=== PATIENT | female | born 1955 | race Caucasian/White ===

== ENCOUNTER 2021-01-01 15:54 | Inpatient (IN) | payer MEDICARE, SELFPAY ==
--- NOTE | ~2021-01-01 | CT_ITS ---
EXAMINATION: CT HEAD WITHOUT CONTRAST CLINICAL INFORMATION: Sanchez's palsy versus stroke. Pain left mastoid region COMPARISON: None TECHNIQUE: Contiguous axial imaging was performed from the skull base to vertex without intravenous administration of contrast. This CT examination was performed using dose optimization techniques as appropriate, variously including the following: *Automated exposure control *Adjustment of mA and/or kV according to patient size (this includes techniques or standardized protocols for targeted exams where dose is matched to indication/reason for exam; i.e. extremities or head) *Use of iterative reconstruction technique DLP: 593 mGy-cm FINDINGS: There is no evidence of acute intracranial hemorrhage or territorial infarction. No abnormal mass effect or midline shift is seen. [place] to white matter differentiation is well preserved. No extra-axial fluid collections are identified. The ventricles are normal in size. There is no abnormal attenuation within the brain parenchyma. The osseous structures and soft tissues are normal. There is diffuse mucoperiosteal thickening with air-fluid level left sphenoid sinus. Rest of the paranasal sinuses are well expanded and clear. Bilateral mastoid sinuses are hypoplastic but clear. Incidental finding of soft tissue mass within left middle ear suggestive of cholesteatoma. CT/CT head/brain wo con IMPRESSION: No acute intracranial process seen. Likely acute sphenoid sinusitis. Left middle ear cholesteatoma. Recommend ENT follow-up.
--- NOTE | ~2021-01-01 | MR_ITS ---
EXAMINATION: MR BRAIN WITHOUT CONTRAST CLINICAL INFORMATION: Stroke evaluation. COMPARISON: CT from 01/01/2021. TECHNIQUE: Multiplanar, multisequence imaging of the brain was performed without contrast. Limits study with motion artifacts. FINDINGS: No diffusion abnormalities are identified to suggest an acute or subacute infarct. The ventricles are normal in size. No mass effect or midline shift is seen. Mild patchy areas of T2 hyperintense signal change in the cerebral white matter and cathy may be due to ischemic microangiopathy. No extra-axial fluid collections are seen. The cerebellum is normal. The gradient refocused acquisition demonstrates no pathologic magnetic susceptibility artifact to indicate underlying acute or chronic blood products. The craniovertebral junction, marrow signal, and midline structures are normal. The major intracranial flow voids at the level of the [place] are preserved. The dural venous sinus flow voids are maintained. There is a moderate amount of fluid in the left middle ear cavity and left mastoid air cells. The right middle ear cavity and right mastoid air cells are well aerated. There may be a mild amount of nonspecific fluid signal in the central canal of the cord on the sagittal T1 FLAIR acquisition. No large syrinx is otherwise evident on the recent prior CT study. There is abnormal asymmetric thickening of the torus tubarius along the posterolateral nasopharyngeal wall on the left side as compared to the right side with partial effacement of the fossa of [place]. No marrow signal abnormality evident in the skull base. Early at the site. There is moderate mucosal thickening along the lai of the left sphenoid sinus. MR/MR head/brain wo con IMPRESSION: Limited study with motion artifacts. No acute intracranial process. Specifically, no acute infarct on diffusion imaging. Mild chronic white matter microangiopathy. Moderate amount of fluid signal in the left middle ear cavity and left mastoid air cells with abnormal asymmetric soft tissue thickening of the left torus tubarius along the posterolateral nasopharyngeal wall and roof resulting in partial effacement of the left fossa of [place]. 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 Recommend ENT consultation to guide further management with direct visual inspection. Imaging findings reported to ZANDER Hernández at 11:09 AM on 01/02/2021.
--- NOTE | ~2021-01-01 | CT_ITS ---
EXAMINATION: CT angio head neck CLINICAL INFORMATION: Left mouth droop. Dysphagia. Bilateral lower extremity weakness. COMPARISON: CT scan of the head 01/01/2021. TECHNIQUE: Building Cleaning Supervisor images were obtained. A CT angiogram of the head and neck was performed in the arterial phase after the intravenous administration of 70 mL Omnipaque 350. Delayed postcontrast images of the head were also obtained. MIP reconstructions were generated in multiple orientations at the acquisition workstation. Multiple three-dimensional surface rendered images and maximum intensity projection images were generated on a dedicated 3-D lab workstation. Arterial stenoses are measured in accordance with NASCET criteria or similar method if applicable. This CT examination was performed using dose optimization techniques as appropriate, including one or more of the following: Automated exposure control, iterative reconstruction, and adjustment of technique factors (mA and/or kVp) according to patient size (this includes techniques or standardized protocols for targeted exams where dose is matched to indication/reason for exam). Total exam dose-length product 1348 mGy-cm FINDINGS: Head: Postcontrast images reveal no abnormal mass or enhancement within the intracranial compartment. No intracranial mass effect or midline shift. Lateral and third ventricles are normal. No hydrocephalus. Ortega-white matter differentiation is preserved and there is no evidence of acute territorial infarct. The calvarium and skull base are intact. The left mastoid air cells and middle ear cavity are partially opacified. The right mastoid air cells are hypoplastic. There is circumferential mucosal thickening within the left sphenoid sinus chamber with a small amount of associated layering fluid. CT angiogram neck: The aortic arch apex is normal. Origins of the major aortic branches are widely patent. Common carotid arteries and the carotid bifurcations are patent. No stenosis of the extracranial internal carotid arteries. There is however beaded irregular narrowing involving both internal carotid arteries consistent with fibromuscular dysplasia. This finding is best depicted on coronal MIP image 93 of 176 series 9. The cervical segments of the vertebral arteries as well as their origins are patent. CT angiogram head: Intracranial internal carotid arteries are patent. The intradural vertebral artery segments and basilar artery are patent. Anterior, middle, and posterior cerebral artery complexes are normal. No intracranial large vessel occlusion. Other: Soft tissues of the neck are unremarkable. Visualized lung apices are clear. No acute osseous finding. Multilevel degenerative spondylosis of the cervical spine. Grossly no evidence of canal compromise. CT/CT angio head neck IMPRESSION: Fibromuscular dysplasia is visualized within both extracranial internal carotid arteries. Otherwise no stenosis of the cervical carotid or vertebral arteries. No intracranial large vessel occlusion. No evidence of acute territorial infarct or hemorrhage. No abnormal intracranial mass or enhancement.
[2021-01-01 15:56] VITALS: BP 166/98; PULSE 106; RESP 20; TEMP 36.8; O2SAT 97; BMI 25.9
--- NOTE | 2021-01-01 16:04 | ECG_ITS ---
Test Reason : FACIAL DROOPING Blood Pressure : / mmHG Vent. Rate : 106 BPM Atrial Rate : 106 BPM P-R Int : 120 ms QRS Dur : 086 ms QT Int : 338 ms P-R-T Axes : 060 061 028 degrees QTc Int : 448 ms Sinus tachycardia Otherwise normal ECG No previous ECGs available Referred By: Generic ED Physician Electronically Signed By:FLOWER PHILLIPS
[2021-01-01 16:28] VITALS: BP 130/71; PULSE 105; RESP 18; O2SAT 97
--- NOTE | 2021-01-01 16:39 | ECG_ITS ---
Test Reason : STROKE Blood Pressure : / mmHG Vent. Rate : 092 BPM Atrial Rate : 092 BPM P-R Int : 122 ms QRS Dur : 096 ms QT Int : 356 ms P-R-T Axes : 067 066 027 degrees QTc Int : 440 ms Normal sinus rhythm Normal ECG When compared with ECG of 01-JAN-2021 16:12, No significant change was found Referred By: Lachelle Braga Electronically Signed By:FLOWER PHILLIPS
--- NOTE | 2021-01-01 16:48 | ED.NEUROSD ---
HPI - Neuro Symptoms/Deficit General Chief Complaint: Stroke Stated Complaint: stroke? Time Seen by Provider: 01/01/21 16:22 Source: patient Mode of arrival: ambulatory Limitations: no limitations History of Present Illness HPI Narrative: Patient comes to emergency room, brought in by her family. Patient returned from vacation and noticed that the patient has left-sided mouth droop and has trouble swallowing. Patient states about 2 days she noticed that her left-sided of her face is droopy. Patient denies weakness in her upper extremities. The family did notice that she also has lower bilateral extremity weakness. Usually patient is able to ambulate at baseline, but today patient had trouble getting out of her chair and walking. Patient states that any fluids that she puts in her mouth, she cannot swallow. Patient denies pain, no falls, not on any blood thinners Related Data Home Medications Medication Instructions Recorded Confirmed ibuprofen-diphenhydramine cit 2 cap PO BEDTIME 01/01/21 01/01/21 [Advil PM] melatonin 10 mg PO BEDTIME PRN 01/01/21 01/01/21 Allergies Allergy/AdvReac Type Severity Reaction Status Date / Time No Known Allergies Allergy Verified 01/01/21 16:01 Review of Systems Review of Systems: Constitutional : No Weight loss, No Fever, No Chills, No Night Sweats, No Fatigue, No Malaise ENT/Mouth : No Hearing loss, complaining of left-sided ear pain, swelling, drainage for 2 weeks. No Nasal Congestion, No Sinus Pain, No Hoarseness, No sore throat, No Rhinorrhea, No Swallowing Difficulty Eyes: No Eye Pain, No Swelling, No Redness, No Foreign Body, No Discharge, No Vision Changes Cardiovascular : No Chest Pain, No SOB, No Dyspnea on Exertion, No Orthopnea, No Edema, No Palpitations Respiratory : No Cough, No Sputum, No Wheezing, No Smoke Exposure, No Dyspnea Gastrointestinal : No Nausea, No Vomiting, No Diarrhea, No Constipation, No abdominal Pain, No Hematochezia, No Melena Genitourinary : no irregular bleeding, No Dysuria, No Urinary Frequency, No Hematuria, No Urinary Incontinence, No Urgency, No Flank Pain, No Urinary Flow Changes, No Hesitancy Musculoskeletal : No joint pain, No Myalgias, No Joint Swelling Skin : No Skin Lesions, No rash Neuro : No Weakness, No Numbness, No Paresthesias, No Loss of Consciousness, No Dizziness, No Headache Psych : No Anxiety/Panic, No Depression, No SI/HI/AH/VH, No Social Issues, Heme/Lymph: No Bruising, No Bleeding,No Lymphadenopathy Endocrine : No Polyuria, No Polydipsia, No Temperature Intolerance PMFSH Past Medical History Medical History Arm abscess Insomnia Surgical History H/O section Social History Social History Alcohol intake: never Patient Tobacco Use Status: Current someday Tobacco user Use of substances other than those prescribed or required for medical reasons: No Advance Directives: No Advance Directives Information Provided: No Physical Exam Vital Signs: Vital Signs: Last Vital Signs Temp 99 F 01/01/21 18:00 Pulse 105 H 01/01/21 16:28 Resp 18 01/01/21 19:37 BP 153/74 H 01/01/21 18:00 Pulse Ox 99 01/01/21 18:00 Body Mass Index 25.9 Appearance: Alert. Oriented X3. No acute distress. Eyes: Pupils equal, round and reactive to light. Left-sided eye droop ENT: Pharynx normal. Left-sided mouth droop, patient unable to wrinkle the left side of the forehead. Edematous and erythematous external ear canal with drainage Neck: Normal inspection. Neck supple. No lymph nodes noted. No crepitus CVS: Normal heart rate and rhythm. Pulses normal. Normal S1 and S2 Respiratory: No respiratory distress. Breath sounds normal. No Wheezing. No rales Abdomen: Soft and nontender. No rigidity. No distention. good BS x4 Skin: Skin warm and dry. Normal skin color. Normal skin turgor. Extremities: No lower extremity edema. Neuro: Oriented X 3. No motor deficit. Left-sided eye drooping and mouth drooping, 5/5 strength in all extremities bilaterally Course Course Course Narrative: On physical exam, patient seems to have difficulty raising the left eyebrow. 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 However, patient home significant trouble swallowing and new lower extremity generalized weakness. CT and CTA pending The CT and the CTA to no show any acute pathology or a large vessel occlusion. Patient is unable to from or move the eyebrow on the left side of her face which is most consistent with Sanchez's palsy, the ear infection that she has on the left ear may be a cause. However, patient has difficulty swallowing and failed the swallow eval. The family also reports new onset bilateral leg weakness, although on physical exam patient has 5/5 strength in upper and lower extremities. I discussed the physical exam and CT scans with Dr. Moe. At this time, patient will be treated as a possible stroke, antiviral medication will not be started at this time. Patient needs an MRI in the morning. I discussed the patient with Dr. Robledo, pt being admitted. MDM - Neuro Symptoms/Deficit Lab Data Result diagrams: 01/01/21 17:47 01/01/21 17:47 Labs: Lab Results 01/01/21 01/01/21 01/01/21 Range/Units 17:22 17:22 17:47 WBC 7.1 (4.8-10.8) X10*3/uL RBC 4.51 (4.20-5.50) X10*6/uL Hgb 13.4 (12.0-16.0) g/dl Hct 41.7 (37-47) % MCV 92.5 (80-98) fL MCH 29.7 (27.0-33.0) pg MCHC 32.1 (31.0-35.0) g/dl RDW 13.9 (11.0-16.0) % Plt Count 233 (160-400) X10*3/uL MPV 9.8 (9.4-12.3) fL Immature Gran % (Auto) 0.3 (0.0-0.4) % Neut % (Auto) 69.2 (45-73) % Lymph % (Auto) 18.5 L (20-40) % [place] % (Auto) 8.6 (2-11) % Eos % (Auto) 2.4 (0-4) % Baso % (Auto) 1.0 (0-2) % Lymph # (Auto) 1.3 (1.2-4.9) X10*3/uL [place] # (Auto) 0.6 (0.1-1.2) X10*3/uL Eos # (Auto) 0.2 (0.0-0.4) X10*3/uL Baso # (Auto) 0.1 (0.0-0.2) X10*3/uL Abs Immat Gran (auto) 0.02 (0.00-0.03) X10*3/uL Absolute Neuts (auto) 4.9 (2.0-8.3) X10*3/uL Absolute Nucleated RBC 0.000 (0.0-0.012) X10*3/uL Nucleated RBC % (auto) 0.0 (0.0-0.2) /100WBC PT (10.8-13.0) SEC INR (0.9-1.1) Sodium (135-145) mmol/L Potassium (3.3-5.1) mmol/L Chloride (96-108) mmol/L Carbon Dioxide (22-29) mmol/L Anion Gap (12-20) BUN (9-16) mg/dL Creatinine (0.5-1.4) mg/dL Estim Creat Clear Calc Estimated GFR Random Glucose (60-115) mg/dL Lactic Acid (0.5-2.0) mmol/L Calcium (8.4-10.2) mg/dL Total Bilirubin (0.0-1.0) mg/dL Direct Bilirubin (0.0-0.5) mg/dL AST (5-31) U/L ALT (0-31) U/L Alkaline Phosphatase (39-117) U/L Troponin I High Sens (<3.5-17.0) ng/L Total Protein (6.5-8.0) g/dL Albumin (3.5-5.0) g/dL Urine Color YELLOW Urine Appearance CLEAR Urine pH 6.0 (5.0-8.0) Ur Specific [place] >= 1.030 H (1.005-1.025) Urine Protein NEG (NEG-TRACE) MG/DL Urine Glucose (UA) NEG (NEG) MG/DL Urine Ketones 15 (NEG) MG/DL Urine Blood NEG (NEG) Urine Nitrite NEG (NEG) Ur Leukocyte Esterase NEG (NEG) Urine Opiates Screen Not Detected (Not Detect) Ur Barbiturates Screen Not Detected (Not Detect) Ur Phencyclidine Scrn Not Detected (Not Detect) Ur Amphetamines Screen Not Detected (Not Detect) U Benzodiazepines Scrn Not Detected (Not Detect) Urine Cocaine Screen Not Detected (Not Detect) U Marijuana (THC) Screen Not Detected (Not Detect) COVID-19 (MENDOZA) (Negative) COVID-19 Clin Com 01/01/21 01/01/21 01/01/21 Range/Units 17:47 17:47 17:47 WBC (4.8-10.8) X10*3/uL RBC (4.20-5.50) X10*6/uL Hgb (12.0-16.0) g/dl Hct (37-47) % MCV (80-98) fL MCH (27.0-33.0) pg MCHC (31.0-35.0) g/dl RDW (11.0-16.0) % Plt Count (160-400) X10*3/uL MPV (9.4-12.3) fL Immature Gran % (Auto) (0.0-0.4) % Neut % (Auto) (45-73) % Lymph % (Auto) (20-40) % [place] % (Auto) (2-11) % Eos % (Auto) (0-4) % Baso % (Auto) (0-2) % Lymph # (Auto) (1.2-4.9) X10*3/uL [place] # (Auto) (0.1-1.2) X10*3/uL Eos # (Auto) (0.0-0.4) X10*3/uL Baso # (Auto) (0.0-0.2) X10*3/uL Abs Immat Gran (auto) (0.00-0.03) X10*3/uL Absolute Neuts (auto) (2.0-8.3) X10*3/uL Absolute Nucleated RBC (0.0-0.012) X10*3/uL Nucleated RBC % (auto) (0.0-0.2) /100WBC PT 13.1 H (10.8-13.0) SEC INR 1.1 (0.9-1.1) Sodium 141 (135-145) mmol/L Potassium 4.1 (3.3-5.1) mmol/L Chloride 107 (96-108) mmol/L Carbon Dioxide 23 (22-29) mmol/L Anion Gap 15 (12-20) BUN 15 (9-16) mg/dL Creatinine 0.66 (0.5-1.4) mg/dL Estim Creat Clear Calc 58.7 Estimated GFR > 60 Random Glucose 102 (60-115) mg/dL Lactic Acid (0.5-2.0) mmol/L Calcium 9.4 (8.4-10.2) mg/dL Total Bilirubin 0.2 (0.0-1.0) mg/dL Direct Bilirubin < 0.2 (0.0-0.5) mg/dL AST 29 (5-31) U/L ALT 17 (0-31) U/L Alkaline Phosphatase 70 (39-117) U/L Troponin I High Sens < 3.5 (<3.5-17.0) ng/L Total Protein 6.1 L (6.5-8.0) g/dL Albumin 3.9 (3.5-5.0) g/dL Urine Color Urine Appearance Urine pH (5.0-8.0) Ur Specific [place] (1.005-1.025) Urine Protein (NEG-TRACE) MG/DL Urine Glucose (UA) (NEG) MG/DL Urine Ketones (NEG) MG/DL Urine Blood (NEG) Urine Nitrite (NEG) Ur Leukocyte Esterase (NEG) Urine Opiates Screen (Not Detect) Ur Barbiturates Screen (Not Detect) Ur Phencyclidine Scrn (Not Detect) Ur Amphetamines Screen (Not Detect) U Benzodiazepines Scrn (Not Detect) Urine Cocaine Screen (Not Detect) U Marijuana (THC) Screen (Not Detect) COVID-19 (MENDOZA) (Negative) COVID-19 Clin Com 01/01/21 01/01/21 01/01/21 Range/Units 17:47 19:49 19:49 WBC (4.8-10.8) X10*3/uL RBC (4.20-5.50) X10*6/uL Hgb (12.0-16.0) g/dl Hct (37-47) % MCV (80-98) fL MCH (27.0-33.0) pg MCHC (31.0-35.0) g/dl RDW (11.0-16.0) % Plt Count (160-400) X10*3/uL MPV (9.4-12.3) fL Immature Gran % (Auto) (0.0-0.4) % Neut % (Auto) (45-73) % Lymph % (Auto) (20-40) % [place] % (Auto) (2-11) % Eos % (Auto) (0-4) % Baso % (Auto) (0-2) % Lymph # (Auto) (1.2-4.9) X10*3/uL [place] # (Auto) (0.1-1.2) X10*3/uL Eos # (Auto) (0.0-0.4) X10*3/uL Baso # (Auto) (0.0-0.2) X10*3/uL Abs Immat Gran (auto) (0.00-0.03) X10*3/uL Absolute Neuts (auto) (2.0-8.3) X10*3/uL Absolute Nucleated RBC (0.0-0.012) X10*3/uL Nucleated RBC % (auto) (0.0-0.2) /100WBC PT (10.8-13.0) SEC INR (0.9-1.1) Sodium (135-145) mmol/L Potassium (3.3-5.1) mmol/L Chloride (96-108) mmol/L Carbon Dioxide (22-29) mmol/L Anion Gap (12-20) BUN (9-16) mg/dL Creatinine (0.5-1.4) mg/dL Estim Creat Clear Calc Estimated GFR Random Glucose (60-115) mg/dL Lactic Acid 0.6 (0.5-2.0) mmol/L Calcium (8.4-10.2) mg/dL Total Bilirubin (0.0-1.0) mg/dL Direct Bilirubin (0.0-0.5) mg/dL AST (5-31) U/L ALT (0-31) U/L Alkaline Phosphatase (39-117) U/L Troponin I High Sens (<3.5-17.0) ng/L Total Protein (6.5-8.0) g/dL Albumin (3.5-5.0) g/dL Urine Color Urine Appearance Urine pH (5.0-8.0) Ur Specific [place] (1.005-1.025) Urine Protein (NEG-TRACE) MG/DL Urine Glucose (UA) (NEG) MG/DL Urine Ketones (NEG) MG/DL Urine Blood (NEG) Urine Nitrite (NEG) Ur Leukocyte Esterase (NEG) Urine Opiates Screen Not Detected (Not Detect) Ur Barbiturates Screen Not Detected (Not Detect) Ur Phencyclidine Scrn Not Detected (Not Detect) Ur Amphetamines Screen Not Detected (Not Detect) U Benzodiazepines Scrn Not Detected (Not Detect) Urine Cocaine Screen Not Detected (Not Detect) U Marijuana (THC) Screen Not Detected (Not Detect) COVID-19 (MENDOZA) Negative (Negative) COVID-19 Clin Com See Note Imaging Data CT scan - head: Radiologist's impression: FINDINGS: There is no evidence of acute intracranial hemorrhage or territorial infarction. No abnormal mass effect or midline shift is seen. [place] to white matter differentiation is well preserved. No extra-axial fluid collections are identified. The ventricles are normal in size. There is no abnormal attenuation within the brain parenchyma. The osseous structures and soft tissues are normal. There is diffuse mucoperiosteal thickening with air-fluid level left sphenoid sinus. Rest of the paranasal sinuses are well expanded and clear. Bilateral mastoid sinuses are hypoplastic but clear. Incidental finding of soft tissue mass within left middle ear suggestive of cholesteatoma. CT/CT head/brain wo con IMPRESSION: No acute intracranial process seen. Likely acute sphenoid sinusitis. Left middle ear cholesteatoma. Recommend ENT follow-up. CT angiogram head and neck: Radiologist's impression: COMPARISON: CT scan of the head 01/01/2021. TECHNIQUE: Seed Cleaner images were obtained. A CT angiogram of the head and neck was performed in the arterial phase after the intravenous administration of 70 mL Omnipaque 350. Delayed postcontrast images of the head were also obtained. MIP reconstructions were generated in multiple orientations at the acquisition workstation. Multiple three-dimensional surface rendered images and maximum intensity projection images were generated on a dedicated 3-D lab workstation. Arterial stenoses are measured in accordance with NASCET criteria or similar method if applicable. This CT examination was performed using dose optimization techniques as appropriate, including one or more of the following: Automated exposure control, iterative reconstruction, and adjustment of technique factors (mA and/or kVp) according to patient size (this includes techniques or standardized protocols for targeted exams where dose is matched to indication/reason for exam). Total exam dose-length product 1348 mGy-cm FINDINGS: Head: Postcontrast images reveal no abnormal mass or enhancement within the intracranial compartment. No intracranial mass effect or midline shift. Lateral and third ventricles are normal. No hydrocephalus. Ortega-white matter differentiation is preserved and there is no evidence of acute territorial infarct. The calvarium and skull base are intact. The left mastoid air cells and middle ear cavity are partially opacified. The right mastoid air cells are hypoplastic. There is circumferential mucosal thickening within the left sphenoid sinus chamber with a small amount of associated layering fluid. CT angiogram neck: The aortic arch apex is normal. Origins of the major aortic branches are widely patent. Common carotid arteries and the carotid bifurcations are patent. No stenosis of the extracranial internal carotid arteries. There is however beaded irregular narrowing involving both internal carotid arteries consistent with fibromuscular dysplasia. This finding is best depicted on coronal MIP image 93 of 176 series 9. The cervical segments of the vertebral arteries as well as their origins are patent. CT angiogram head: Intracranial internal carotid arteries are patent. The intradural vertebral artery segments and basilar artery are patent. Anterior, middle, and posterior cerebral artery complexes are normal. No intracranial large vessel occlusion. Other: Soft tissues of the neck are unremarkable. Visualized lung apices are clear. No acute osseous finding. Multilevel degenerative spondylosis of the cervical spine. Grossly no evidence of canal compromise. CT/CT angio head neck IMPRESSION: Fibromuscular dysplasia is visualized within both extracranial internal carotid arteries. Otherwise no stenosis of the cervical carotid or vertebral arteries. No intracranial large vessel occlusion. No evidence of acute territorial infarct or hemorrhage. No abnormal intracranial mass or enhancement. ECG Data Attestation: I personally reviewed and interpreted this ECG as follows: (Normal sinus rhythm, heart rate 92, no ST segment depression or elevation, nonspecific T-wave inversion in lead 3) NIH Stroke Scale Level of Consciousness: Alert Level of Consciousness Questions: Answers both questions correctly Level of Consciousness Commands: Performs both tasks correctly Best Gaze: Normal Visual: No visual loss Facial Palsy: Complete paralysis Motor Arm (Right): No drift Motor Arm (Left): No drift Motor Leg (Right): No drift Motor Leg (Left): No drift Limb Ataxia: Absent Sensory: Mild to moderate sensory loss Best Language: No aphasia Dysarthia: Normal Extinction and Inattention: No abnormality Score: 4 Critical Care Time Critical Care Time Total Critical Care Time: 50 Discharge Plan Discharge Clinical Impression: Cerebrovascular accident Patient Disposition: Admitted As Inpatient Prescriptions: No Action Advil PM 200-38 mg Tablet 2 cap PO BEDTIME RF: 0 melatonin 5 mg Tablet 10 mg PO BEDTIME PRN (Reason: Insomnia) RF: 0
--- NOTE | 2021-01-01 17:23 | PC.NURSE ---
patient states that she poured isopropyl alcohol in her ear before coming to the hospital, RN aware
[2021-01-01 17:33] LABS: Glucose Urine UA NEG (NEG); Leukocyte Esterase Urine NEG (NEG); Nitrite Urine NEG (NEG); Specific Gravity - Urine >= 1.030 (1.005-1.025); Urine Blood NEG (NEG); Urine Ketones 15 MG/DL (NEG); Urine Protein NEG (NEG-TRACE)
[2021-01-01 17:34] LABS: Appearance Urine CLEAR; Color Urine YELLOW
[2021-01-01 17:59] LABS: MANUAL DIFF FLAG NO
[2021-01-01 18:00] VITALS: BP 153/74; RESP 92; TEMP 37.2; O2SAT 99
[2021-01-01 18:00] LABS: Basophils Absolute Auto 0.1 X10*3/uL (0.0-0.2); Eosinophils Absolute Auto 0.2 X10*3/uL (0.0-0.4); Eosinophils Percent Auto 2.4 % (0-4); Hematocrit 41.7 % (37-47); Hemoglobin 13.4 g/dl (12.0-16.0); Imm Gran Abs Auto 0.02 X10*3/uL (0.00-0.03); Imm Gran Pct Auto 0.3 % (0.0-0.4); Lymphocytes Absolute Auto 1.3 X10*3/uL (1.2-4.9); Lymphocytes Percent Auto 18.5 % (20-40); Mean Corpuscular HGB Conc 32.1 g/dl (31.0-35.0); Mean Corpuscular Hemoglobin 29.7 pg (27.0-33.0); Mean Corpuscular Volume 92.5 fL (80-98); Mean Platelet Volume 9.8 fL (9.4-12.3); Monocytes Absolute Auto 0.6 X10*3/uL (0.1-1.2); Monocytes Percent Auto 8.6 % (2-11); Neutrophils Absolute Auto 4.9 X10*3/uL (2.0-8.3); Neutrophils Percent Auto 69.2 % (45-73); Platelet Count 233 X10*3/uL (160-400); Red Blood Count 4.51 X10*6/uL (4.20-5.50); Red Cell Distribution Width 13.9 % (11.0-16.0); White Blood Count 7.1 X10*3/uL (4.8-10.8)
[2021-01-01 18:06] LABS: INTERNATIONAL NORM RATIO 1.1 (0.9-1.1); Prothrombin Time 13.1 SEC (10.8-13.0)
[2021-01-01 18:20] LABS: Lactic Acid 0.6 mmol/L (0.5-2.0)
[2021-01-01 18:27] LABS: Alanine Aminotransferase 17 U/L (0-31); Albumin Level 3.9 g/dL (3.5-5.0); Alkaline Phosphatase 70 U/L (39-117); Anion Gap 15 (12-20); Aspartate Amino Transferase 29 U/L (5-31); Bilirubin Direct < 0.2 mg/dL (0.0-0.5); Bilirubin Total 0.2 mg/dL (0.0-1.0); Blood Urea Nitrogen 15 mg/dL (9-16); Calcium 9.4 mg/dL (8.4-10.2); Carbon Dioxide 23 mmol/L (22-29); Chloride 107 mmol/L (96-108); Creatinine Clr Calc Pharmacy 58.7; Estimated Glomerular Filt Rate > 60; Glucose Random 102 mg/dL (60-115); Potassium 4.1 mmol/L (3.3-5.1); Sodium 141 mmol/L (135-145); Total Protein 6.1 g/dL (6.5-8.0)
[2021-01-01 18:30] LABS: Troponin-I High Sensitivity < 3.5 ng/L (<3.5-17.0)
[2021-01-01 19:04] LABS: Amphetamine Screen Urine Not Detected (Not Detect); Barbiturates, Urine Not Detected (Not Detect); Benzodiazepines Screen Urine Not Detected (Not Detect); Cannabinoid Screen Urine Not Detected (Not Detect); Cocaine Screen Urine Not Detected (Not Detect); Opiate Screen Urine Not Detected (Not Detect); Phencyclidine Screen Urine Not Detected (Not Detect)
--- NOTE | 2021-01-01 19:14 | PC.NURSE ---
Patient is complaining of pain in the left side of her neck . Patient failed her swallow test and couldn't take the oral medication that was prescribed. Patient refused VT tylenol. This mortgage underwriter spoke with MD who prescribed Morphine iv for patient's pain level.
[2021-01-01] MEDS: iohexoL 350 MG/ML 100 ML INFUS..BTL IV (19:30)
[2021-01-01 19:37] VITALS: RESP 18
[2021-01-01] MEDS: Morphine Sulfate 2 MG/ML CARTRIDGE IVPUSH (19:37)
[2021-01-01 20:13] LABS: COVID-19 Test Negative (Negative); IDNOW Serial# 9DD0AD1C
[2021-01-01 20:31] LABS: Amphetamine Screen Urine Not Detected (Not Detect); Barbiturates, Urine Not Detected (Not Detect); Benzodiazepines Screen Urine Not Detected (Not Detect); Cannabinoid Screen Urine Not Detected (Not Detect); Cocaine Screen Urine Not Detected (Not Detect); Opiate Screen Urine Not Detected (Not Detect); Phencyclidine Screen Urine Not Detected (Not Detect)
[2021-01-01 21:56] VITALS: BP 193/84; PULSE 93; RESP 18; TEMP 36.7; O2SAT 96
[2021-01-01 23:37] VITALS: BP 193/84; PULSE 93; RESP 18; TEMP 36.7; O2SAT 96
[2021-01-01 23:49] LABS: MANUAL DIFF FLAG NO
[2021-01-01 23:51] LABS: Basophils Absolute Auto 0.1 X10*3/uL (0.0-0.2); Eosinophils Absolute Auto 0.3 X10*3/uL (0.0-0.4); Eosinophils Percent Auto 4.4 % (0-4); Hematocrit 39.9 % (37-47); Hemoglobin 12.8 g/dl (12.0-16.0); Imm Gran Abs Auto 0.02 X10*3/uL (0.00-0.03); Imm Gran Pct Auto 0.3 % (0.0-0.4); Lymphocytes Absolute Auto 1.5 X10*3/uL (1.2-4.9); Lymphocytes Percent Auto 21.7 % (20-40); Mean Corpuscular HGB Conc 32.1 g/dl (31.0-35.0); Mean Corpuscular Hemoglobin 29.8 pg (27.0-33.0); Mean Platelet Volume 9.6 fL (9.4-12.3); Monocytes Absolute Auto 0.7 X10*3/uL (0.1-1.2); Neutrophils Absolute Auto 4.3 X10*3/uL (2.0-8.3); Neutrophils Percent Auto 62.6 % (45-73); Platelet Count 212 X10*3/uL (160-400); Red Blood Count 4.29 X10*6/uL (4.20-5.50); White Blood Count 6.9 X10*3/uL (4.8-10.8)
[2021-01-02] VITALS (9 sets, daily range): BP systolic 150–189; BP diastolic 74–90; PULSE 88–106; RESP 14–27; TEMP 36.7–37; O2SAT 93–96
[2021-01-02 00:18] LABS: Anion Gap 15 (12-20); Blood Urea Nitrogen 13 mg/dL (9-16); Calcium 8.8 mg/dL (8.4-10.2); Carbon Dioxide 25 mmol/L (22-29); Chloride 105 mmol/L (96-108); Creatinine Clr Calc Pharmacy 64.5; Estimated Glomerular Filt Rate > 60; Glucose Random 78 mg/dL (60-115); Potassium 3.8 mmol/L (3.3-5.1); Sodium 141 mmol/L (135-145)
--- NOTE | 2021-01-02 05:56 | PM.IMHP ---
History of Present Illness Date of Service: 01/01/21 Chief Complaint: Facial droopiness and slurred speech This is a 65-year-old female with no significant past medical history who presents to the hospital complaining of 2 day history of facial droop and worsening slurred speech. Patient reports that she has been battling ear infection for the past 2 weeks, with progressive loss of hearing in that same ear but refused to go to the hospital or seek medical attention because 'she does not like doctors'. She reports that about 2 days ago she started noticing left facial droop that has progressively worsened over the past 2 days, progressively worsening slurred speech, lightheadedness, and difficulty with swallowing. She feels like her throat is sore and she is unable to swallow without difficulty. She reports no reports numbness or tingling in her arms or legs but reports both her legs have been feeling heavy port past 2 days. 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 No intracranial large vessel occlusion, no evidence of acute territorial infarct or hemorrhage. Case was discussed with Neurology, patient will be admitted for further management Review of Systems Review of Systems: Yes all other systems are reviewed and are negative [facility] Medical History Arm abscess Insomnia Surgical History H/O section Social History Alcohol intake: never Patient Tobacco Use Status: Current someday Tobacco user Use of substances other than those prescribed or required for medical reasons: No Advance Directives: No Advance Directives Information Provided: No Meds Allergies Allergy/AdvReac Type Severity Reaction Status Date / Time No Known Allergies Allergy Verified 01/01/21 16:01 Active Medications: Current Medications Generic Name Dose Route Start Last Admin Trade Name Freq PRN Reason Stop Dose Admin Acetaminophen 650 mg 01/01/21 21:59 Acetaminophen Supp 650 Mg Supp.Rect MT Q6H PRN Pain, Mild (Pain Scale 1-3) Acetaminophen 650 mg 01/01/21 21:59 Acetaminophen 325 Mg Tablet PO Q6H PRN Pain, Mild (Pain Scale 1-3) Aspirin 81 mg 01/02/21 09:00 Aspirin Enteric Coated 81 Mg Tablet.Dr PO DAILY [facility] Docusate Sodium 100 mg 01/01/21 21:59 Docusate Sodium 100 Mg Capsule PO DAILY PRN Constipation Ampicillin Sodium/Sulbactam 100 mls @ 200 mls/hr 01/02/21 06:00 Sodium 3 gm/ Sodium Chloride IV Q8H [facility] Melatonin 9 mg 01/01/21 22:05 Melatonin 3 Mg Tablet PO BEDTIME PRN Insomnia Ondansetron HCl 4 mg 01/01/21 21:59 Ondansetron Hcl 4 Mg/2 Ml Vial IVPUSH Q8H PRN Nausea and Vomiting Pravastatin Sodium 40 mg 01/02/21 09:00 Pravastatin Sodium 40 Mg Tablet PO DAILY [facility] Home Medications Medication Instructions Recorded Confirmed Last Taken Type ibuprofen-diphenhydramine cit 2 cap PO BEDTIME 01/01/21 01/01/21 12/31/20 History [Advil PM] melatonin 10 mg PO BEDTIME PRN 01/01/21 01/01/21 12/31/20 History Physical Exam Vital Signs and Narrative: Vital Signs: Last Vital Signs Temp 98.1 F 01/01/21 23:37 Pulse 88 01/02/21 04:00 Resp 14 01/02/21 04:00 BP 193/84 H 01/01/21 23:37 Pulse Ox 96 01/01/21 23:37 Body Mass Index 25.9 Const: General: cooperative and no acute distress Orientation/consciousness: patient oriented x3 HENMT: Other: Facial droop on the left side, difficulty with wrinkling her forehead Ears: TM normal on the right, external ear abnormal (Left) auricular tenderness and pain with movement of external ear, hearing grossly impaired ( left ear) on the left and unable to visualize TM on the left Eyes: Other: Ptosis of the left eyelid Resp: Effort & Inspection: normal respiratory effort, able to speak in complete sentences and abnormal respiratory pattern Auscultation: clear to auscultation bilaterally Cardio: Rate: regular rate Rhythm: regular rhythm GI: Palpation (GI): Soft to palpation Auscultation: normal bowel sounds Skin: General skin exam: no rashes or lesions noted Neuro: General: patient oriented x3 Cognition (Neuro): normal cognition Motor exam (neuro): 5/5 motor strength present throughout Sensory Exam: Normal double simultaneous stimulation for sensation Extrem: General: Yes normal to inspection and Yes no pedal edema Results Labs CBC and Chem 7: 01/01/21 23:39 01/01/21 23:39 Labs: Laboratory Results - last 24 hr 01/01/21 01/01/21 01/01/21 17:22 17:22 17:47 MCV 92.5 MCH 29.7 MCHC 32.1 RDW 13.9 Plt Count 233 MPV 9.8 Immature Gran % (Auto) 0.3 Neut % (Auto) 69.2 Lymph % (Auto) 18.5 L [place] % (Auto) 8.6 Eos % (Auto) 2.4 Baso % (Auto) 1.0 Lymph # (Auto) 1.3 [place] # (Auto) 0.6 Eos # (Auto) 0.2 Baso # (Auto) 0.1 Abs Immat Gran (auto) 0.02 Absolute Neuts (auto) 4.9 Absolute Nucleated RBC 0.000 Nucleated RBC % (auto) 0.0 PT INR Anion Gap Estim Creat Clear Calc Estimated GFR Random Glucose Lactic Acid Calcium Total Bilirubin Direct Bilirubin AST ALT Alkaline Phosphatase Troponin I High Sens Total Protein Albumin Urine Color YELLOW Urine Appearance CLEAR Urine pH 6.0 Ur Specific [place] >= 1.030 H Urine Protein NEG Urine Glucose (UA) NEG Urine Ketones 15 Urine Blood NEG Urine Nitrite NEG Ur Leukocyte Esterase NEG Urine Opiates Screen Not Detected Ur Barbiturates Screen Not Detected Ur Phencyclidine Scrn Not Detected Ur Amphetamines Screen Not Detected U Benzodiazepines Scrn Not Detected Urine Cocaine Screen Not Detected U Marijuana (THC) Screen Not Detected COVID-19 (MEND[place]ZA) COVID-19 Clin Com 01/01/21 01/01/21 01/01/21 17:47 17:47 17:47 MCV MCH MCHC RDW Plt Count MPV Immature Gran % (Auto) Neut % (Auto) Lymph % (Auto) [place] % (Auto) Eos % (Auto) Baso % (Auto) Lymph # (Auto) [place] # (Auto) Eos # (Auto) Baso # (Auto) Abs Immat Gran (auto) Absolute Neuts (auto) Absolute Nucleated RBC Nucleated RBC % (auto) PT 13.1 H INR 1.1 Anion Gap 15 Estim Creat Clear Calc 58.7 Estimated GFR > 60 Random Glucose 102 Lactic Acid Calcium 9.4 Total Bilirubin 0.2 Direct Bilirubin < 0.2 AST 29 ALT 17 Alkaline Phosphatase 70 Troponin I High Sens < 3.5 Total Protein 6.1 L Albumin 3.9 Urine Color Urine Appearance Urine pH Ur Specific [place] Urine Protein Urine Glucose (UA) Urine Ketones Urine Blood Urine Nitrite Ur Leukocyte Esterase Urine Opiates Screen Ur Barbiturates Screen Ur Phencyclidine Scrn Ur Amphetamines Screen U Benzodiazepines Scrn Urine Cocaine Screen U Marijuana (THC) Screen COVID-19 ([place]END[place]) COVID-ShowEvidence 01/01/21 01/01/21 01/01/21 17:47 19:49 19:49 MCV MCH MCHC RDW Plt Count MPV Immature Gran % (Auto) Neut % (Auto) Lymph % (Auto) [place] % (Auto) Eos % (Auto) Baso % (Auto) Lymph # (Auto) [place] # (Auto) Eos # (Auto) Baso # (Auto) Abs Immat Gran (auto) Absolute Neuts (auto) Absolute Nucleated RBC Nucleated RBC % (auto) PT INR Anion Gap Estim Creat Clear Calc Estimated GFR Random Glucose Lactic Acid 0.6 Calcium Total Bilirubin Direct Bilirubin AST ALT Alkaline Phosphatase Troponin I High Sens Total Protein Albumin Urine Color Urine Appearance Urine pH Ur Specific [place] Urine Protein Urine Glucose (UA) Urine Ketones Urine Blood Urine Nitrite Ur Leukocyte Esterase Urine Opiates Screen Not Detected Ur Barbiturates Screen Not Detected Ur Phencyclidine Scrn Not Detected Ur Amphetamines Screen Not Detected U Benzodiazepines Scrn Not Detected Urine Cocaine Screen Not Detected U Marijuana (THC) Screen Not Detected COVID-19 (MENDOZA) Negative COVID-19 Tre[place]ise See Note 01/01/21 01/01/21 23:39 23:39 MCV 93.0 MCH 29.8 MCHC 32.1 RDW 14.0 Plt Count 212 MPV 9.6 Immature Gran % (Auto) 0.3 Neut % (Auto) 62.6 Lymph % (Auto) 21.7 [place] % (Auto) 10.0 Eos % (Auto) 4.4 H Baso % (Auto) 1.0 Lymph # (Auto) 1.5 [place] # (Auto) 0.7 Eos # (Auto) 0.3 Baso # (Auto) 0.1 Abs Immat Gran (auto) 0.02 Absolute Neuts (auto) 4.3 Absolute Nucleated RBC 0.000 Nucleated RBC % (auto) 0.0 PT INR Anion Gap 15 Estim Creat Clear Calc 64.5 Estimated GFR > 60 Random Glucose 78 Lactic Acid Calcium 8.8 D Total Bilirubin Direct Bilirubin AST ALT Alkaline Phosphatase Troponin I High Sens Total Protein Albumin Urine Color Urine Appearance Urine pH Ur Specific [place] Urine Protein Urine Glucose (UA) Urine Ketones Urine Blood Urine Nitrite Ur Leukocyte Esterase Urine Opiates Screen Ur Barbiturates Screen Ur Phencyclidine Scrn Ur Amphetamines Screen U Benzodiazepines Scrn Urine Cocaine Screen U Marijuana (THC) Screen COVID-19 ([facility]END[place]ZA) COVID-19 Clin Com Imaging Radiologist's Impressions: Impressions Head CT 01/01/21 16:41 IMPRESSION: No acute intracranial process seen. Likely acute sphenoid sinusitis. Left middle ear cholesteatoma. Recommend ENT follow-up. Head/Neck CTA 01/01/21 16:51 IMPRESSION: Fibromuscular dysplasia is visualized within both extracranial internal carotid arteries. Otherwise no stenosis of the cervical carotid or vertebral arteries. No intracranial large vessel occlusion. No evidence of acute territorial infarct or hemorrhage. No abnormal intracranial mass or enhancement. Assessment and Plan (1) Cerebrovascular accident: Qualifiers: CVA mechanism: unspecified Qualified Code(s): I63.9 - Cerebral infarction, unspecified Status: Acute (2) Facial droop: Status: Acute (3) Otitis media: Status: Acute (4) Cholesteatoma: Status: Acute This is a 65-year-old female with no significant past medical history who presents to the hospital with complaints of facial droop, slurred speech # CVA - acute stroke versus Sanchez's palsy - patient has difficulty swallowing, complete facial droop of the left face, has difficulty wrinkling history forehead and therefore has aspects of both bowels pulse in acute stroke - case was discussed with Neurology - at this point will treat patient for stroke with aspirin, high-dose statin - MRI in the morning - patient did fail her swallow evaluation few rectal administration of aspirin - Stroke Education, PT OT ot # otitis media - patient reports that she has been having left ear pain, drainage for the past 2 weeks - will start on Unasyn given the fact that she is unable to take any p.o. at this time # dysphagia - most likely secondary to CVA - will keep NPO at this time - swallow evaluation # cholesteatoma - will need outpatient follow-up with ENT DVT ppx:Lovenox Quality Stroke Does the patient have a stroke diagnosis?: Yes Reason for No Anti-thrombotic by Day Two: N/A - Med Ordered VTE Prior VTE?: No VTE Risk Level:: Medical - moderate - high VTE Device Contraindication: Treatment Not Indicated VTE Drug Contraindication: N/A - Med Ordered
[2021-01-02] MEDS: Ampicillin Sodium/Sulbactam Na 3 GM in 0.9 % Sodium Chloride 100 ML IV ×3 (06:12→21:57)
[2021-01-02 08:05] LABS: Cholesterol 221 mg/dL; HDL Cholesterol 55 mg/dL; LDL Cholesterol Calculated 153 mg/dl; Triglycerides 69 mg/dL
[2021-01-02] MEDS: Acetaminophen Supp 650 MG SUPP.RECT PR (08:52)
--- NOTE | 2021-01-02 09:03 | MHC.CM.PN ---
Patient lives in a house with her 6 adult Children and she required no services nor DME HORTICULTURALIST. PT rec STR VS Acute Rehab- referrals have been made to [facility] and the 3 Acute Rehabs in this area. CM has initiated and will follow for dc planning.
[2021-01-02] MEDS: Enoxaparin Sodium 40 MG/0.4 ML SYRINGE SUBCUT (09:14)
--- NOTE | 2021-01-02 10:38 | MHC.SLORD ---
Speech Language Pathology Order Status: SERVICE SUPERINTENDENT attempted to see patient for bedside dysphagia evaluation, but patient was away for MRI. SERVICE SUPERINTENDENT to return later to evaluate.
--- NOTE | 2021-01-02 13:21 | P.PNIM_ITS ---
Subjective Subjective Date of Service: 01/02/21 Interval History: follow-up facial droop, slurred speech no pain or discomfort no weakness to her arms or legs Physical Exam Vital Signs: Vital Signs: Last Vital Signs Temp 98.3 F 01/02/21 11:56 Pulse 106 H 01/02/21 11:56 Resp 19 01/02/21 11:56 BP 180/90 H 01/02/21 12:02 Pulse Ox 94 01/02/21 11:56 Body Mass Index 25.9 Appearing in no acute distress head is normocephalic atraumatic eyes pupils are PERRLA sclera is anicteric lung sounds are clear to auscultation heart regular rate rhythm, clear S1, S2 positive bowel sounds, abdomen is soft, nontender neuro patient is alert x3, Left facial droop including eye and mouth with slurred speech Objective Data Current Medications Generic Name Dose Route Start Last Admin Trade Name Freq PRN Reason Stop Dose Admin Acetaminophen 650 mg 01/01/21 21:59 01/02/21 08:52 Acetaminophen Supp 650 Mg Supp.Rect DE 650 mg Q6H PRN Administration Pain, Mild (Pain Scale 1-3) Enoxaparin Sodium 40 mg 01/02/21 09:00 01/02/21 09:14 Enoxaparin Sodium 40 Mg/0.4 Ml Syringe SUBCUT 40 mg Q24H VICKIE Administration Ampicillin Sodium/Sulbactam 100 mls @ 200 mls/hr 01/02/21 06:00 01/02/21 07:34 Sodium 3 gm/ Sodium Chloride IV Infused Q8H VICKIE Infusion Melatonin 9 mg 01/01/21 22:05 Melatonin 3 Mg Tablet PO BEDTIME PRN Insomnia Ondansetron HCl 4 mg 01/01/21 21:59 Ondansetron Hcl 4 Mg/2 Ml Vial IVPUSH Q8H PRN Nausea and Vomiting Labs CBC & Chem 7: 01/01/21 23:39 01/01/21 23:39 Labs: Laboratory Results - last 24 hr 01/01/21 01/01/21 01/01/21 17:22 17:22 17:47 WBC 7.1 RBC 4.51 Hgb 13.4 Hct 41.7 MCV 92.5 MCH 29.7 MCHC 32.1 RDW 13.9 Plt Count 233 MPV 9.8 Immature Gran % (Auto) 0.3 Neut % (Auto) 69.2 Lymph % (Auto) 18.5 L [place] % (Auto) 8.6 Eos % (Auto) 2.4 Baso % (Auto) 1.0 Lymph # (Auto) 1.3 [place] # (Auto) 0.6 Eos # (Auto) 0.2 Baso # (Auto) 0.1 Abs Immat Gran (auto) 0.02 Absolute Neuts (auto) 4.9 Absolute Nucleated RBC 0.000 Nucleated RBC % (auto) 0.0 PT INR Sodium Potassium Chloride Carbon Dioxide Anion Gap BUN Creatinine Estim Creat Clear Calc Estimated GFR Random Glucose Lactic Acid Calcium Total Bilirubin Direct Bilirubin AST ALT Alkaline Phosphatase Troponin I High Sens Total Protein Albumin Triglycerides Cholesterol LDL Cholesterol, Calc HDL Cholesterol Urine Color YELLOW Urine Appearance CLEAR Urine pH 6.0 Ur Specific [place] >= 1.030 H Urine Protein NEG Urine Glucose (UA) NEG Urine Ketones 15 Urine Blood NEG Urine Nitrite NEG Ur Leukocyte Esterase NEG Urine Opiates Screen Not Detected Ur Barbiturates Screen Not Detected Ur Phencyclidine Scrn Not Detected Ur Amphetamines Screen Not Detected U Benzodiazepines Scrn Not Detected Urine Cocaine Screen Not Detected U Marijuana (THC) Screen Not Detected COVID-19 ([facility]ENDOZA) COVID-19 Clin Com 01/01/21 01/01/21 01/01/21 17:47 17:47 17:47 WBC RBC Hgb Hct MCV MCH MCHC RDW Plt Count MPV Immature Gran % (Auto) Neut % (Auto) Lymph % (Auto) [place] % (Auto) Eos % (Auto) Baso % (Auto) Lymph # (Auto) [place] # (Auto) Eos # (Auto) Baso # (Auto) Abs Immat Gran (auto) Absolute Neuts (auto) Absolute Nucleated RBC Nucleated RBC % (auto) PT 13.1 H INR 1.1 Sodium 141 Potassium 4.1 Chloride 107 Carbon Dioxide 23 Anion Gap 15 BUN 15 Creatinine 0.66 Estim Creat Clear Calc 58.7 Estimated GFR > 60 Random Glucose 102 Lactic Acid Calcium 9.4 Total Bilirubin 0.2 Direct Bilirubin < 0.2 AST 29 ALT 17 Alkaline Phosphatase 70 Troponin I High Sens < 3.5 Total Protein 6.1 L Albumin 3.9 Triglycerides Cholesterol LDL Cholesterol, Calc HDL Cholesterol Urine Color Urine Appearance Urine pH Ur Specific [place] Urine Protein Urine Glucose (UA) Urine Ketones Urine Blood Urine Nitrite Ur Leukocyte Esterase Urine Opiates Screen Ur Barbiturates Screen Ur Phencyclidine Scrn Ur Amphetamines Screen U Benzodiazepines Scrn Urine Cocaine Screen U Marijuana (THC) Screen COVID-19 (MENDOZA) COVID-19 Clin Com 01/01/21 01/01/21 01/01/21 17:47 19:49 19:49 WBC RBC Hgb Hct MCV MCH MCHC RDW Plt Count MPV Immature Gran % (Auto) Neut % (Auto) Lymph % (Auto) [place] % (Auto) Eos % (Auto) Baso % (Auto) Lymph # (Auto) [place] # (Auto) Eos # (Auto) Baso # (Auto) Abs Immat Gran (auto) Absolute Neuts (auto) Absolute Nucleated RBC Nucleated RBC % (auto) PT INR Sodium Potassium Chloride Carbon Dioxide Anion Gap BUN Creatinine Estim Creat Clear Calc Estimated GFR Random Glucose Lactic Acid 0.6 Calcium Total Bilirubin Direct Bilirubin AST ALT Alkaline Phosphatase Troponin I High Sens Total Protein Albumin Triglycerides Cholesterol LDL Cholesterol, Calc HDL Cholesterol Urine Color Urine Appearance Urine pH Ur Specific [place] Urine Protein Urine Glucose (UA) Urine Ketones Urine Blood Urine Nitrite Ur Leukocyte Esterase Urine Opiates Screen Not Detected Ur Barbiturates Screen Not Detected Ur Phencyclidine Scrn Not Detected Ur Amphetamines Screen Not Detected U Benzodiazepines Scrn Not Detected Urine Cocaine Screen Not Detected U Marijuana (THC) Screen Not Detected COVID-19 ([facility]END[place]ZA) Negative COVID-19 Clin Com See Note 01/01/21 01/01/21 01/02/21 23:39 23:39 07:07 WBC 6.9 RBC 4.29 Hgb 12.8 Hct 39.9 MCV 93.0 MCH 29.8 MCHC 32.1 RDW 14.0 Plt Count 212 MPV 9.6 Immature Gran % (Auto) 0.3 Neut % (Auto) 62.6 Lymph % (Auto) 21.7 [place] % (Auto) 10.0 Eos % (Auto) 4.4 H Baso % (Auto) 1.0 Lymph # (Auto) 1.5 [place] # (Auto) 0.7 Eos # (Auto) 0.3 Baso # (Auto) 0.1 Abs Immat Gran (auto) 0.02 Absolute Neuts (auto) 4.3 Absolute Nucleated RBC 0.000 Nucleated RBC % (auto) 0.0 PT INR Sodium 141 Potassium 3.8 Chloride 105 Carbon Dioxide 25 Anion Gap 15 BUN 13 Creatinine 0.60 Estim Creat Clear Calc 64.5 Estimated GFR > 60 Random Glucose 78 Lactic Acid Calcium 8.8 D Total Bilirubin Direct Bilirubin AST ALT Alkaline Phosphatase Troponin I High Sens Total Protein Albumin Triglycerides 69 Cholesterol 221 LDL Cholesterol, Calc 153 HDL Cholesterol 55 Urine Color Urine Appearance Urine pH Ur Specific [place] Urine Protein Urine Glucose (UA) Urine Ketones Urine Blood Urine Nitrite Ur Leukocyte Esterase Urine Opiates Screen Ur Barbiturates Screen Ur Phencyclidine Scrn Ur Amphetamines Screen U Benzodiazepines Scrn Urine Cocaine Screen U Marijuana (THC) Screen COVID-19 (MENDOZA) COVID-19 Clin Com Quality Stroke Does the patient have a stroke diagnosis?: Yes Reason for No Anti-thrombotic by Day Two: N/A - Med Ordered VTE Prior VTE?: No VTE Risk Level:: Medical - moderate - high VTE Device Contraindication: Treatment Not Indicated VTE Drug Contraindication: N/A - Med Ordered Assessment and Plan (1) Facial droop: Status: Acute Assessment and Plan: 65-year-old female with no significant past medical history who presents to the hospital with complaints of facial droop, slurred speech. Discussed case with [facility] ENT surgery, Alexia Correia, her thought was that the facial palsy is more related to and ear infection and recommended steroids and antibiotics. She will follow-up with the patient as an outpatient this week CVA versus Sanchez's palsy. MRI not showing acute stroke seems more like Sanchez's palsy but she was having difficulty swallowing facial neuropathy possibly related nasopharyngeal tumor versus infection still was some difficulty swallowing and left-sided facial droop - neurology consultation pending Nasal obstruction. Incidental finding on MRI of abnormal asymmetric soft tissue thickening in the nasopharyngeal wall with question of nasopharyngeal carcinoma -outpatient ENT follow-up otitis media. patient reports that she has been having left ear pain, drainage for the past 2 weeks -Unasyn, then switched to oral medications when she has an easier time swallowing dysphagia. - speech and swallow evaluation pending - swallow evaluation cholesteatoma - will need outpatient follow-up with ENT DVT ppx with Juanjo Attending: Dr. Guerrero Full code
--- NOTE | 2021-01-02 14:17 | MHC.SL.SWA ---
Speech Pathologist Impression: Risk of Aspiration Oralpharyngeal Dysphagia Dysphasia Diet Status: Downgrade Liquid Consistency and Strategies for Safe Swallow: Liquid Intake Recommendation: Alianza Thick Liquid Intake Strategies: Small Sips No Straws Solid Food Consistency: Dietary Recommendations: Grnd/Mech Altered (NDD2) Additional Modifications to Solid Foods: Recommend soft solids due to edentulous state. Oral Medication Intake: Whole with Puree Compensatory Strategies and Precautions to be Taken for Safe Swallow: Sitting Upright (90 deg) No Straw Small Bites and Sips Alternate Liquids/Solids Rate of Ingestion Change Avoid Specific Foods Supervision While Eating and Drinking for Safe Swallow: Total Supervision (1:1) Foods to Avoid: Avoid tough foods, sticky foods and mixed consistencies. Swallowing Recommended Treatments: Compens. Strategy Educat. Recommendation for Speech: Inpatient Speech Therapy Comment: Noted anterior spillage when drinking liquids. Vocal wetness when drinking thin liquid. No overt s/s of aspiration with nectar thick liquid. Patient is edentulous and is recommended a softer diet as patient does not have dentures. COATING MACHINE OPERATOR will continue to follow. Clinical Investigator Clinican/Clinical Fellow: No Supervisory Statement: I have reviewed and agree with the student/clinical fellow's documentation: N/A Speech Language Pathologist: La Valles M.A., CCC-COATING MACHINE OPERATOR
--- NOTE | 2021-01-02 14:26 | P.CNNE_ITS ---
History of Present Illness Data of Consult Service Date: 01/02/21 Primary Care Provider: Kamila Physician 65 years old woman with no significant past medical history and not following any primary care physician came to hospital with 1-2 days history of left-sided facial weakness. Family was not sure when it started. She also had slurred speech in it presentation and there was concern about stroke. Initial evaluation did not suggest stroke and she was admitted for further evaluation. Today she had an MRI brain done. Her facial weakness has not improved. She was not complaining of any headache. Review of Systems Review of Systems: No recent cold or flu-like illness. She said that she was having a left ear infection. [facility] Past Medical History Medical History Arm abscess Insomnia Surgical History Surgical History H/O section Social History Social History Household Members: Other Household Members Other:: grandchildren Housing: House Do you presently have visiting nurse or other home services: No Alcohol intake: never Patient Tobacco Use Status: Current someday Tobacco user Cigarettes Per Day: 4 Smoked in Last 30 Days: Yes Patient Interested in Nicotine Replacement: No Patient Given Instructions on How to Stop Smoking: No Second Hand Smoke Exposure: Yes Use of substances other than those prescribed or required for medical reasons: No Have you been hit, kicked, punched, or otherwise hurt by someone within the past year? If so, by whom?: No Do you feel safe in your current relationship?: Yes Is there a partner from a previous relationship who is making you feel unsafe now?: No Are you made to feel afraid or neglected: No Advance Directives: No Advance Directives Information Provided: No Do you have thoughts of harming others: None Recently lost weight without trying: No Eating poorly because of decreased appetite: No Nutrition Risks: Difficulty swallowing Patient : No : No Poor oral hygiene: No service: No Current occupational status: retired [employer] Allergies Allergy/AdvReac Type Severity Reaction Status Date / Time No Known Allergies Allergy Verified 01/01/21 16:01 Active Medications: Current Medications Generic Name Dose Route Start Last Admin Trade Name Freq PRN Reason Stop Dose Admin Acetaminophen 650 mg 01/01/21 21:59 01/02/21 08:52 Acetaminophen Supp 650 Mg Supp.Rect ME 650 mg Q6H PRN Administration Pain, Mild (Pain Scale 1-3) Enoxaparin Sodium 40 mg 01/02/21 09:00 01/02/21 09:14 Enoxaparin Sodium 40 Mg/0.4 Ml Syringe SUBCUT 40 mg Q24H VICKIE Administration Ampicillin Sodium/Sulbactam 100 mls @ 200 mls/hr 01/02/21 06:00 01/02/21 13:41 Sodium 3 gm/ Sodium Chloride IV 200 mls/hr Q8H VICKIE Administration Melatonin 9 mg 01/01/21 22:05 Melatonin 3 Mg Tablet PO BEDTIME PRN Insomnia Ondansetron HCl 4 mg 01/01/21 21:59 Ondansetron Hcl 4 Mg/2 Ml Vial IVPUSH Q8H PRN Nausea and Vomiting Home Medications Medication Instructions Recorded Confirmed Last Taken Type ibuprofen-diphenhydramine cit 2 cap PO BEDTIME 01/01/21 01/01/21 12/31/20 History [Advil PM] melatonin 10 mg PO BEDTIME PRN 01/01/21 01/01/21 12/31/20 History Physical Exam Vital Signs: Vital Signs: Last Vital Signs Temp 98.3 F 01/02/21 11:56 Pulse 106 H 01/02/21 11:56 Resp 19 01/02/21 11:56 BP 180/90 H 01/02/21 12:02 Pulse Ox 94 01/02/21 11:56 Body Mass Index 25.9 Alert and awake with normal spontaneity of speech fluency comprehension and affect. There was moderate left-sided peripheral type facial weakness. There was no focal arm or leg weakness. Deep tendon reflexes were trace to absent with flexor plantars. Extraocular muscles were intact with full visual patton. Results Labs CBC & Chem 7: 01/01/21 23:39 01/01/21 23:39 Labs: Short CBC 01/01/21 01/01/21 Range/Units 17:47 23:39 WBC 7.1 6.9 (4.8-10.8) X10*3/uL Hgb 13.4 12.8 (12.0-16.0) g/dl Hct 41.7 39.9 (37-47) % Plt Count 233 212 (160-400) X10*3/uL BMP 01/01/21 01/01/21 17:47 23:39 Sodium 141 141 Potassium 4.1 3.8 Chloride 107 105 Carbon Dioxide 23 25 BUN 15 13 Creatinine 0.66 0.60 Calcium 9.4 8.8 D Liver Function 01/01/21 Range/Units 17:47 Total Bilirubin 0.2 (0.0-1.0) mg/dL Direct Bilirubin < 0.2 (0.0-0.5) mg/dL AST 29 (5-31) U/L ALT 17 (0-31) U/L Alkaline Phosphatase 70 (39-117) U/L Albumin 3.9 (3.5-5.0) g/dL Urine 01/01/21 Range/Units 17:22 Urine Color YELLOW Urine Appearance CLEAR Urine pH 6.0 (5.0-8.0) Ur Specific [place] >= 1.030 H (1.005-1.025) Urine Protein NEG (NEG-TRACE) MG/DL Urine Glucose (UA) NEG (NEG) MG/DL Her MRI of brain revealed a left mastoid area lesion, with suspicion of nasopharyngeal carcinoma. 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 At this time I would recommend prednisone 60 mg daily for few days to see if we could save her and facial nerve. Urgent ENT consultation and management is recommended. Procedures Date of Service Date of Service: 01/02/21
--- NOTE | 2021-01-02 19:01 | PC.NURSE ---
Security called 3 times for family dispute/disruption. Patients family arguing in room regarding health status, and where she is going to live after she is discharged. Patients family member in the lobby was very upset and arguing with another family member. Pt son escorted up to room by security. family reminded that visits are strict 30 min, and only two people in room. Patient became increasingly more distressed during these encounters. All family has since left the premises. Patient now resting comfortably in bed.
[2021-01-02] MEDS: predniSONE 20 MG TABLET 40 MG PO (20:02)
--- NOTE | 2021-01-02 21:59 | CA_ITS ---
Transthoracic Echocardiogram Patient (Last, First, Middle): Yessica Lora, Gender: Female Date of : 1955 Age: 65 Procedure Date: 01/02/2021 Procedure Type: Transthoracic Echocardiogram Location: [facility] [place] Height: 144.78 cm Weight: 54.43 kg BSA: 1.45 m2 Heart Rate: bpm BP: 162 / 82 mmHg Mingler Operator: NATTY Bond MD: Majo Robledo MD Symptoms: stroke Study Quality: Good Conclusions: - Normal left ventricular size and systolic function. - E/E prime ratio is between 8 and 15 consistent with indeterminate filling pressures. - Normal right ventricular cavity size and systolic function. - Both atria are normal in size. There is no evidence of interatrial shunt by color Doppler. Findings Left Ventricle Normal left ventricular size and systolic function. There is mildly increased left ventricular wall thickness. The visually estimated ejection fraction is between 65-70%. There is no evidence of regional wall motion abnormalities. Abnormal diastolic function is noted. Spectral Doppler is indicative of an impaired relaxation filling pattern. E/E prime ratio is between 8 and 15 consistent with indeterminate filling pressures. Right Ventricle Normal right ventricular cavity size and systolic function. Atria Both atria are normal in size. There is no evidence of interatrial shunt by color Doppler. Aortic Valve There is a normal trileaflet aortic valve. There is mild thickening of the aortic valve. There is no aortic valve stenosis. There is no aortic valve regurgitation. Mitral Valve Normal mitral valve structure and function. There is no mitral valve regurgitation. There is no mitral valve stenosis. Pulmonic Valve The pulmonic valve is likely normal. Tricuspid Valve Normal tricuspid valve structure and function. There is no tricuspid valve regurgitation. Normal right atrial pressure. There is no evidence of pulmonary hypertension. Great Vessels All visible segments of the aorta are normal in size. The visualized portions of the pulmonary artery and branches are normal. Venous The inferior vena cava is normal in size and collapses greater than 50% with inspiration. Pericardium/Pleural There is no evidence of pericardial effusion. Prior Study Comparison No prior study available for comparison. Measurements 2D Linear Measurements IVSd: 0.93 0.6-0.9/0.6-1.0 cm LVIDd: 3.17 3.9-5.3/4.2-5.9 cm LVIDd Index: 2.19 2.4-3.2/2.2-3.1 cm/m2 LVIDs: 2.15 2.0-3.6 cm LVPWd: 1.07 0.7-1.1 cm Ao Root: 3.00 2.1-3.5 cm LA Diam: 2.20 2.7-3.8/3.0-4.0 cm LAIDs Index: 1.52 1.5-2.3 cm/m2 LV Mass: 110.92 67-162/88-224 g LV Mass Index: 76.50 43-95/49-115 g/m2 LVOT Diam: 1.90 3.0+(-)1.3 cm Mitral Valve MV Pk E: 0.64 MV PK A: 0.81 MV Decel Time: 201.00 E/A: 0.80 E'Lateral: 5.33 E'Medial: 5.98 E/E' Med: 10.80 E/E' Lat: 12.10 PHT: 59.00 MVA PHT: 3.73 Decel [place]: 3.19 Aortic Valve AoV Pk Jatinder: 1.49 AoV Mn Jatinder: 0.96 AoV VTI: 0.29 AoV Pk Grad: 9.00 Aov Mn Grad: 4.00 MATT Cont.VTI: 2.15 LVOT LVOT Pk Jatinder: 0.98 LVOT Mn Jatinder: 0.69 LVOT VTI: 0.22 LVOT Pk Grad: 4.00 LVOT Mn Grad: 2.00 LVOT Diam: 1.90 LVOT Area: 2.84 Diastolic Function MV Pk E: 0.64 MV Pk A: 0.81 E/A: 0.80 E'Medial: 5.98 E/E' Med: 10.80 E' Laterial: 5.33 E/E' Lat: 12.10 Great Vessels Aorta Ao Root-2D: 3.00 2.0-3.7 cm Ao Asc: 3.00 2.1-3.4 cm Ao Arch: 2.60 Updated in Other Vendor System with Status of Final Himanshu Hughes MD electronically signed on 01/02/2021 4:47:35 PM with status of Final
[2021-01-03 03:02] VITALS: BP 140/85; PULSE 106; RESP 12; TEMP 37.1; O2SAT 94
[2021-01-03] MEDS: Ampicillin Sodium/Sulbactam Na 3 GM in 0.9 % Sodium Chloride 100 ML IV (06:28)
[2021-01-03] MEDS: Enoxaparin Sodium 40 MG/0.4 ML SYRINGE SUBCUT (07:39)
[2021-01-03] MEDS: predniSONE 20 MG TABLET 40 MG PO (07:39)
[2021-01-03 08:00] VITALS: BP 162/90; PULSE 102; RESP 20; TEMP 36.8; O2SAT 94
--- NOTE | 2021-01-03 10:25 | PM.DS ---
DS: Providers Provider Date of Service: 01/03/21 <Dorina Hernández NP - Last Filed: 01/03/21 17:01> Date of admission: 01/01/21 21:50 <Dorina Hernández NP - Last Filed: 01/03/21 17:01> Date of discharge: 01/03/21 <Dorina Hernández NP - Last Filed: 01/03/21 17:01> Primary care physician: Kamila Physician <Dorina Hernández NP - Last Filed: 01/03/21 17:01> Admitting clinician: Majo Robledo <Dorina Hernández NP - Last Filed: 01/03/21 17:01> Attending physician on admission: Majo Robledo <Dorina Hernández NP - Last Filed: 01/03/21 17:01> Consults: 01/01/21 21:59 Consult to Neurology Routine Consulting Provider: [facility] Reason for consultation: stroke vs Sanchez's palsy Has provider been notified: Yes <Dorina Hernández NP - Last Filed: 01/03/21 17:01> Attending physician on discharge: Lopez Guerrero <Dorina Hernández NP - Last Filed: 01/03/21 17:01> Discharging clinician: Dorina Hernández <Dorina Hernández NP - Last Filed: 01/03/21 17:01> DS: Medications Discharge Medications Home Medications: Home Medications Medication Instructions Recorded Confirmed Advil PM 2 cap PO BEDTIME 01/01/21 01/01/21 melatonin 10 mg PO BEDTIME PRN 01/01/21 01/01/21 Previous Rx's Medication Instructions Recorded amoxicillin-pot clavulanate 1 tab PO BID #20 tab 01/03/21 [Augmentin] prednisone 40 mg PO DAILY 4 Days #16 tab 01/03/21 <Dorina Hernández NP - Last Filed: 01/03/21 17:01> DS: Summary Hospital Course Hospital Course: HP as per admitting provider This is a 65-year-old female with no significant past medical history who presents to the hospital complaining of 2 day history of facial droop and worsening slurred speech. Patient reports that she has been battling ear infection for the past 2 weeks, with progressive loss of hearing in that same ear but refused to go to the hospital or seek medical attention because 'she does not like doctors'. She reports that about 2 days ago she started noticing left facial droop that has progressively worsened over the past 2 days, progressively worsening slurred speech, lightheadedness, and difficulty with swallowing. She feels like her throat is sore and she is unable to swallow without difficulty. She reports no reports numbness or tingling in her arms or legs but reports both her legs have been feeling heavy port past 2 days. 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 On arrival vital significant for temp of 98.1, heart rate of 93, respiratory rate of 18, blood pressure of 193/84, satting 96% on room air. Labs are unremarkable. 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 No intracranial large vessel occlusion, no evidence of acute territorial infarct or hemorrhage . Facial neuropathy. Patient presented with 2 days of left-sided facial droop with slurred speech. She reports that she had been currently treated for an ear infection over 2 weeks with progressive hearing loss but did not seek medical attention because she does not like doctors . Initially was thought that patient may have had a stroke head CTA and CT was negative for any acute stroke but did show left middle ear cholesteatoma. 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 case discussed with Neurology who also recommended discussion with ENT at [facility]. Discussed case with [facility] ENT surgeon, Alexia Oden, after discussing the case she did not feel like the patient would need to be emergently transferred but would need to follow up as an outpatient in their ENT office. Symptoms of the left-sided facial droop / neuropathy likely related to untreated ear infection. Her left ear had no drainage and actually the patient stated that it felt better, hearing also improved. Discussed with her son in law, Anshu ( ) he will be following up with her for her appointments at ENT. She was started on Unasyn while inpatient and will be sent home with Augmentin for 10 days as well as prednisone for 4 more days. Hypertension. Patient not been on any antihypertensives at home however blood pressure had been elevated during the admission. She was started on Norvasc 5 mg daily and should continue this and follow up with her primary care provider. Attending Attestation: Patient seen and examined independently and I was present during pacheco portion of E/M service. Agree with Ting Hernández NP's history, physical, assessment, and plan. <Dorina Hernández NP - Last Filed: 01/03/21 17:01> Time Spent with Patient Time attestation: Total time spent providing and/or coordinating discharge services: <Dorina Hernández NP - Last Filed: 01/03/21 17:01> Discharge coordination time: Greater than 30 minutes <Dorina Hernández NP - Last Filed: 01/03/21 17:01> Quality: Stroke Does the patient have a stroke diagnosis?: No <Dorina Hernández NP - Last Filed: 01/03/21 17:01> Physical Exam Vital Signs: Vital Signs: Last Vital Signs Temp 98.2 F 01/03/21 08:00 Pulse 102 H 01/03/21 08:00 Resp 20 01/03/21 08:00 BP 162/90 H 01/03/21 08:00 Pulse Ox 94 01/03/21 08:00 Body Mass Index 25.9 <Dorina Hernández NP - Last Filed: 01/03/21 17:01> DS: Data Data Completed and Pending Labs on day of discharge: Preliminary micro results at discharge 01/01/21 19:49 Blood Culture - Preliminary Blood - Venous 01/01/21 19:49 Blood Culture - Preliminary Blood - Venous No growth after 24 hours. <Dorina Hernández NP - Last Filed: 01/03/21 17:01> Discharge Plan Discharge Anticipated Discharge Date/Time: 01/03/21 10:04 <Dorina Hernández NP - Last Filed: 01/03/21 17:01> Patient Disposition: Home, Self-Care <Dorina Hernández NP - Last Filed: 01/03/21 17:01> Discharge Diagnosis: facial neuropathy otitis media dysphagia <Dorina Hernández NP - Last Filed: 01/03/21 17:01> facial neuropathy otitis media dysphagia <Lopez Guerrero MD - Last Filed: 01/04/21 16:21> Referrals: Alexia Oden MD [Physician] - 1 Week (follow up for nasopharyngeal mass) <Dorina Hernández NP - Last Filed: 01/03/21 17:01> Discharge Medications: New amoxicillin-pot clavulanate [Augmentin] 875-125 mg tablet 1 tab PO BID Qty: 20 RF: 0 prednisone 10 mg tablet 40 mg PO DAILY 4 Days Qty: 16 RF: 0 amlodipine 5 mg Tablet 5 mg PO DAILY Qty: 30 RF: 0 Continued Advil PM 200-38 mg Tablet 2 cap PO BEDTIME RF: 0 melatonin 5 mg Tablet 10 mg PO BEDTIME PRN (Reason: Insomnia) RF: 0 <Dorina Hernández NP - Last Filed: 01/03/21 17:01> Discharge Orders: Discharge Order (Routine); Ordered 01/03/21 Ordered By: Dorina Hernández <Dorina Hernández NP - Last Filed: 01/03/21 17:01> Diet: advance to usual diet <Dorina Hernández NP - Last Filed: 01/03/21 17:01> advance to usual diet <Lopez Guerrero MD - Last Filed: 01/04/21 16:21> Activity on Discharge: As tolerated <Dorina Hernández NP - Last Filed: 01/03/21 17:01> As tolerated <Lopez Guerrero MD - Last Filed: 01/04/21 16:21> Stand Alone Forms: Patient Portal Discharge page <Dorina Hernández NP - Last Filed: 01/03/21 17:01> Care Plan Goals: resolution of facial droop/ facial neuropathy <Dorina Hernández NP - Last Filed: 01/03/21 17:01> Health Concerns: Facial neuropathy otitis media dysphagia <Dorina Hernández NP - Last Filed: 01/03/21 17:01> Plan of Treatment: Follow up with [facility] ENT surgeons [phone] for further workup for nasopharyngeal mass With the difficulty swallowing please adhere to the following diet: ground diet, soft solids take medications whole with puree such as pudding sit straight up while eating do not use a straw take small bites and slow sips alternate liquids with solids <Dorina Hernández NP - Last Filed: 01/03/21 17:01> Assessment: See discharge summary <Dorina Hernández NP - Last Filed: 01/03/21 17:01> Discharge Date/Time: 01/03/21 12:03 <Dorina Hernández NP - Last Filed: 01/03/21 17:01>
[2021-01-03] MEDS: predniSONE 20 MG TABLET 60 MG PO (10:26)
[2021-01-03 10:27] VITALS: BP 162/90; PULSE 102
[2021-01-03] MEDS: amLODIPine Besylate 5 MG TABLET PO (10:27)
[2021-01-03 10:50] VITALS: BP 162/90; PULSE 102
--- NOTE | 2021-01-03 10:57 | MHC.SL.SWA ---
Speech Pathologist Impression: Risk of Aspiration Oralpharyngeal Dysphagia Dysphasia Diet Status: No Change Liquid Consistency and Strategies for Safe Swallow: Liquid Intake Recommendation: [place] Thick Liquid Intake Strategies: Small Sips Solid Food Consistency: Dietary Recommendations: Grnd/Mech Altered (NDD2) Additional Modifications to Solid Foods: Recommend soft solids due to edentulous state. Oral Medication Intake: Whole with Puree Compensatory Strategies and Precautions to be Taken for Safe Swallow: Sitting Upright (90 deg) Small Bites and Sips Alternate Liquids/Solids Rate of Ingestion Change Avoid Specific Foods Supervision While Eating and Drinking for Safe Swallow: Total Supervision (1:1) Foods to Avoid: Avoid tough foods, sticky foods and mixed consistencies. Swallowing Recommended Treatments: Compens. Strategy Educat. Recommendation for Speech: Inpatient Speech Therapy Comment: Noted anterior spillage when drinking liquids. Vocal wetness when drinking thin liquid. No overt s/s of aspiration with nectar thick liquid. Patient is edentulous and is recommended a softer diet as patient does not have dentures. CHANGE MANAGEMENT SPECIALIST will continue to follow. Strap Buckler Machine Clinican/Clinical Fellow: No Supervisory Statement: I have reviewed and agree with the student/clinical fellow's documentation: N/A Speech Language Pathologist: La Valles M.A., [facility]-CHANGE MANAGEMENT SPECIALIST
--- NOTE | 2021-01-03 11:07 | MHC.CM.PN ---
Patient has been medically cleared for dc to home today, no services.Last IMM addressed yesterday.CM approached Patient about STR and she adamantly refused, stating, no, I'm going home. Patient has not seen her PCP in a significant amount of time and therefor is not eligible for VNA at time of dc.
== END 2021-01-03 12:03 | disposition home or self-care (01) | DRG 74 ==
LOC: HO.ED 21:50 → HO.EDOVER 22:29 → HO.IMC 01-02 05:34
PROVIDERS: Admitting Provider Internal Medicine; Emergency Provider Emergency Medicine; Visit Provider Family Medicine
DX: G51.9 Disorder of facial nerve, unspecified (principal); I10 Essential (primary) hypertension; C11.9 Malignant neoplasm of nasopharynx, unspecified; H60.40 Cholesteatoma of external ear, unspecified ear; H66.92 Otitis media, unspecified, left ear; Z20.822 Contact with and (suspected) exposure to COVID-19; Z79.899 Other long term (current) drug therapy
CPT/HCPCS: 36415; 70450; 70496; 70498; 70551; 80048; 80061; 80076; 80307; 81003; 83605; 84484; 85025; 85610; 87040; 87077; 87147; 87205; 87635; 92610; 93005; 93306; 97110; 97116; 97162; 97166; 97535; 99285; J0295; J1650; J2270; Q9967